=== PATIENT | female | born 1995 | race Caucasian/White ===

== ENCOUNTER 2017-04-15 21:02 | Emergency (ER) | payer OTHER ==
[2017-04-15 21:09] VITALS: RESP 20
[2017-04-15] MEDS ORDERED: SODIUM CHLORIDE 0.9% 1,000 ML IV STA (21:18)
[2017-04-15] MEDS ORDERED: METOCLOPRAMIDE 5 MG/ML 2 ML VIAL IVP STA (21:18)
[2017-04-15] MEDS ORDERED: KETOROLAC 30 MG/ML 1 ML VIAL IVP STA (21:18)
[2017-04-15] MEDS ORDERED: MAGNESIUM SULFATE-D5W PMX 1 GM in DEXTROSE/WATER 1 100ML.BAG IVPB ONE (21:19)
[2017-04-15] MEDS ORDERED: DEXAMETHASONE SOD PHOSPHATE 10 MG/ML 1 ML VIAL IV STA (21:19)
--- NOTE | 2017-04-15 21:22 | ED ---
Headache HPI - General Chief Complaint: Headache Stated Complaint: migraine Time Seen by Provider: 04/15/17 21:14 Mode of arrival: ambulatory Limitations: no limitations - History of Present Illness Initial Comments: This 22-year-old white female presents with a complaint of a headache. This is diffuse in nature. This consistent with her previous migraine headaches for which she's had since she was 3 years old. She has some minimal neck pain. She has photophobia, phonophobia, nausea, and vomiting. Onset occurred last night. She denies any fevers or chills. She did try some aspirin and Motrin for this with out any relief. She states that the pain is fairly severe. She does complain of some spots in her vision which she has had with previous migraines. No other complaints or modifying factors. - Related Data Allergies Allergy/AdvReac Type Severity Reaction Status Date / Time No Known Allergies Allergy Verified 04/15/17 21:09 Review of Systems ROS Statement: Those systems with pertinent positive or pertinent negative responses have been documented in the HPI. ROS Other: All systems not noted in ROS Statement are negative. Past Medical History Additional Past Medical History / Comment(s): migraines History of Any Multi-Drug Resistant Organisms: None Reported Past Surgical History: Orthopedic Surgery Additional Past Surgical History / Comment(s): lt ankle Past Psychological History: No Psychological Hx Reported Smoking Status: Former smoker Past Alcohol Use History: Occasional Past Drug Use History: None Reported General Exam - General Exam Comments Initial Comments: GENERAL: The patient is well nourished and well hydrated. VITAL SIGNS: Heart rate, blood pressure, respiratory rate reviewed as recorded in nurse's notes. EYES: Pupils are round and reactive. Extraocular movements are intact. No conjunctival / lid redness or swelling. Light sensitivity noted. ENT: No external evidence of injury, swelling, or ecchymosis. Airway is patent. Throat is clear. NECK: Nontender. No swelling or evidence of injury. No subcutaneous emphysema. Trachea is midline. No thyroid mass. No meningeal signs. HEART: Regular rate and rhythm. Good peripheral pulses. LUNGS/CHEST: Breath sounds clear and equal bilaterally. No rales, rhonchi, or wheezes. No ecchymosis, subcutaneous emphysema, or tenderness. ABDOMEN: Abdomen soft without tenderness. No palpable masses or organomegaly. No peritoneal signs. No abdominal wall swelling or ecchymosis. EXTREMITIES: No extremity tenderness. Normal muscle tone and function. No thoracolumbar tenderness. NEUROLOGIC: Sensation is grossly intact. Cranial nerve exam reveals face is symmetrical, tongue is midline, speech is clear. SKIN: No abrasions or ecchymosis is noted. No induration or masses noted. PSYCHIATRIC: Alert and oriented. Appropriate behavior and judgment. Limitations: no limitations Course Vital Signs 04/15/17 21:07 Temperature 98.3 F Pulse Rate 97 Respiratory 20 Rate Blood Pressure 140/62 O2 Sat by Pulse 98 Oximetry Medical Decision Making - Medical Decision Making The patient was seen and examined. An IV is started and patient does receive some magnesium, Decadron, Toradol, and Reglan intravenously. She also receives ample IV fluid hydration. Disposition Clinical Impression: Migraine, Nausea and vomiting Disposition: HOME SELF-CARE Condition: Good Instructions: Migraine Headache (ED) Referrals: Albert Helms DO [Primary Care Provider] - 1-2 days
[2017-04-15 22:21] VITALS: BP 103/50; PULSE 82; TEMP 97.1
== END 2017-04-15 22:59 | disposition home or self-care (01) ==
LOC: EC 21:02
DX: G43.909 Migraine, unspecified, not intractable, without status migrainosus (principal); Z87.891 Personal history of nicotine dependence
CPT/HCPCS: 99283; 96365; 96375 ×3; J1100; J2765; J1885; J3475

== ENCOUNTER → 2018-10-23 | Outpatient (CLI) | payer BC, OTHER ==
--- NOTE | 2018-10-23 16:16 | CT ---
EXAMINATION TYPE: CT brain wo con DATE OF EXAM: 10/23/2018 COMPARISON: CT brain November 08, 2006 HISTORY: Migraines. CT DLP: 872 mGycm. Automated Exposure Control for Dose Reduction was Utilized. TECHNIQUE: CT scan of the head is performed without contrast. FINDINGS: There is no acute intracranial hemorrhage, mass effect, or midline shift identified. The ventricles and sulci are within normal limits in size. The globes are intact and the visualized sin uses are clear. Left cerebellar calcifications axial image 16 unchanged from prior. Shannon-white matter differentiation is maintained. Impression: No acute intracranial hemorrhage or midline shift is seen.
== END | disposition home or self-care (01) ==
LOC: RADCTMAIN 15:55
PROVIDERS: ATTEND Family Medicine
DX: G43.909 Migraine, unspecified, not intractable, without status migrainosus (principal)
CPT/HCPCS: 70450

== ENCOUNTER → 2020-04-19 | Outpatient (CLI) | payer BC | END | disposition home or self-care (01) | LOC: CPPFTMAIN 10:40 | PROVIDERS: ATTEND Family Medicine | DX: J45.909 Unspecified asthma, uncomplicated (principal) | CPT/HCPCS: 94060; 94726; 94729 ==

== ENCOUNTER → 2020-04-26 | Outpatient (CLI) | payer BC ==
--- NOTE | 2020-04-26 08:39 | US ---
EXAMINATION TYPE: US abdomen complete DATE OF EXAM: 04/26/2020 COMPARISON: US 01/14/2010 CLINICAL HISTORY: R74.8 ABN LEVELS OF SERUM ENZYMES,R11.0 NAUSEA. Patient is morbidly obese. Limited exam EXAM MEASUREMENTS: Liver Length: 17.8 cm Gallbladder Wall: 0.2 cm CBD: 0.3 cm Spleen: 10.3 cm Right Kidney: 9.1 x 4.7 x 4.3 cm Left Kidney: 9.2 x 5.0 x 5.4 cm Pancreas: Obscured by bowel gas Liver: Measuring upper limits of normal, heterogeneous Gallbladder: wnl as visualized Evidence for sonographic Reddy's sign: no CBD: wnl as visualized Spleen: wnl Right Kidney: No hydronephrosis or masses seen Left Kidney: No hydronephrosis or masses seen Upper IVC: wnl Abd Aorta: wnl as visualized The liver is heterogeneous. The intrahepatic portion of the IVC and proximal abdominal aorta are wit hin normal limits. There is no evidence of cholelithiasis. Common bile duct is unremarkable. The v isualized portions of the pancreas are homogenous. The spleen is unremarkable. Kidneys are symmetri c and free of hydronephrosis. No renal lesions are seen. IMPRESSION: Probable mild hepatic steatosis.
== END | disposition home or self-care (01) ==
LOC: RADUSWWP 07:39
PROVIDERS: ATTEND Family Medicine
DX: R74.8 Abnormal levels of other serum enzymes (principal)
CPT/HCPCS: 76700